=== PATIENT | male | born 1985 | race Two or more races ===

== ENCOUNTER 2016-10-13 11:30 | Inpatient (IN) | payer MEDICAID, OTHER ==
[~2016-10-13] VITALS: Ht 190.5 cm; Wt 77.6 kg
[~2016-10-13 11:30] MED LIST: NORPTMEDS CO
[2016-10-13 12:05] LABS: Basophils # (auto) 0 uL; Basophils % (auto) 0.4 % (0.0-2.0); CONDITION Y; Eosinophils # (auto) 0 uL; Hematocrit 48.8 % (41.0-53.0); Hemoglobin 16.9 g/dL (13.5-17.5); Lymphocytes # (auto) 1.2 uL; Lymphocytes % (auto) 9.7 % (10.0-50.0); Mean Corpuscular Hemoglobin 30.7 pg (28.0-32.0); Mean Corpuscular Hgb Conc. 34.5 g/dL (32.0-36.0); Mean Corpuscular Volume 89.1 fL (80.0-100.0); Mean Platelet Volume 8.8 fL (7.4-10.4); Monocytes # (auto) 0.3 uL; Monocytes % (auto) 2.7 % (0.0-12.0); Neutrophils # (auto) 10.4 uL; Neutrophils % (auto) 87.2 % (37.0-80.0); Platelet Count (auto) 365 10^3/uL (140-450); Red Cell Distribution Width 13.9 % (11.6-16.0); White Blood Cell 11.9 10^3/uL (4.4-10.8)
[2016-10-13] MEDS ORDERED: SODIUM CHLORIDE 0.9% 1,000 ML IVB ONE (12:08)
[2016-10-13] MEDS ORDERED: PANTOPRAZOLE SODIUM 40 MG/10 ML VIAL IV ONE (12:15)
[2016-10-13] MEDS ORDERED: MORPHINE SULF INJ 2 MG/ML SYRINGE 1ML IV ONE ×2 (12:15→13:30)
[2016-10-13] MEDS ORDERED: ONDANSETRON HCL 4 MG/2 ML VIAL IV ONE (12:15)
[2016-10-13 12:26] LABS: Albumin 4.4 g/dL (3.4-5.0); BUN/Creatinine Ratio 9.8; Calcium 9.4 mg/dL (8.5-10.1); Potassium 3.9 mmol/L (3.5-5.1)
[2016-10-13 12:29] LABS: Bilirubin, Total 1.4 mg/dL (0.2-1.0); Total Protein 8.8 g/dL (6.4-8.2)
[2016-10-13 12:30] LABS: INR 1.01 (0.9-1.15); Magnesium 1.9 mg/dL (1.6-2.6); Partial Thromboplastin Time 25.1 sec (22.64-33.71)
[2016-10-13 13:24] LABS: Urine Bilirubin Negative (Negative); Urine Blood Negative /uL (Negative); Urine Color Yellow (Yellow); Urine Glucose Normal (Normal); Urine Mucus FEW (None Seen); Urine Nitrite Negative (Negative); Urine RBC 3 /hpf (0 - 3); Urine Squamous Epithelial Cell FEW /hpf (<5); Urine pH 8.5 (5.0-8.0)
[2016-10-13 13:29] LABS: Urine Ketone 3+ (Negative)
[2016-10-13] MEDS ORDERED: SODIUM CHLORIDE 0.9% 1,000 ML IV ONE ×2 (13:30)
[2016-10-13] MEDS ORDERED: PROMETHAZINE HCL 25 MG/ML 1ML IV ONE (13:30)
[2016-10-13] MEDS ORDERED: MORPHINE SULFATE 4 MG/ML SYRG IV PRN (14:00)
[2016-10-13] MEDS ORDERED: LORazepam 2MG/ML-1ML VIAL IV PRN (14:00)
[2016-10-13] MEDS ORDERED: THIAMINE HCL 100 MG/ML 2ML VIAL IV ONE (14:00)
[2016-10-13] MEDS: THIAMINE INJ 100 MG, MULTIPLE VITAMIN 10 ML, FOLIC ACID 1 MG, MAGNESIUM SULF SDV 50% 8 ... IV SCH ×10 (14:26→18:00)
[2016-10-13] MEDS: metroNIDAZOLE 500MG/100ML 100 ML IV SCH ×2 (15:08→21:45)
[2016-10-13] MEDS: cefTRIAXone 1GM/50ML D5W 50 ML IV SCH (15:08)
[2016-10-13] MEDS: HYDROmorphone HCL 2 MG/ML VL IV PRN ×2 (15:50→20:26)
[2016-10-13] MEDS: SODIUM CHLORIDE 0.9% 1,000 ML IV SCH ×2 (16:22→20:35)
[2016-10-13 20:15] VITALS: BP 151/107
[2016-10-13] MEDS: FAMOTIDINE (10MG/ML) 2ML VL IV SCH (21:45)
[2016-10-13 22:00] VITALS: BP 151/107
[2016-10-14] MEDS: HYDROmorphone HCL 2 MG/ML VL IV PRN ×6 (00:30→20:50)
[2016-10-14] MEDS: SODIUM CHLORIDE 0.9% 1,000 ML IV SCH ×2 (02:01→09:48)
[2016-10-14 05:00] VITALS: BP 154/108
[2016-10-14] MEDS: metroNIDAZOLE 500MG/100ML 100 ML IV SCH (05:34)
[2016-10-14 06:28] LABS: Basophils # (auto) 0 uL; Basophils % (auto) 0.2 % (0.0-2.0); CONDITION Y; Eosinophils # (auto) 0.1 uL; Eosinophils % (auto) 0.6 % (0.0-7.0); Hematocrit 43.9 % (41.0-53.0); Lymphocytes # (auto) 1.5 uL; Lymphocytes % (auto) 13.9 % (10.0-50.0); Mean Corpuscular Hgb Conc. 34.2 g/dL (32.0-36.0); Mean Corpuscular Volume 90.7 fL (80.0-100.0); Mean Platelet Volume 9.4 fL (7.4-10.4); Monocytes # (auto) 0.7 uL; Monocytes % (auto) 7.1 % (0.0-12.0); Neutrophils # (auto) 8.2 uL; Neutrophils % (auto) 78.2 % (37.0-80.0); Platelet Count (auto) 227 10^3/uL (140-450); Red Cell Distribution Width 13.6 % (11.6-16.0); White Blood Cell 10.5 10^3/uL (4.4-10.8)
[2016-10-14 07:10] LABS: Albumin 3.5 g/dL (3.4-5.0); BUN/Creatinine Ratio 8.7; Bilirubin, Total 1.9 mg/dL (0.2-1.0); Potassium 3.6 mmol/L (3.5-5.1); Total Protein 7.1 g/dL (6.4-8.2)
[2016-10-14 08:00] VITALS: BP 156/106
[2016-10-14] MEDS: cefTRIAXone 1GM/50ML D5W 50 ML IV SCH (08:43)
[2016-10-14] MEDS: FAMOTIDINE (10MG/ML) 2ML VL IV SCH ×2 (09:43→21:32)
[2016-10-14] MEDS: THIAMINE HCL 100 MG/ML 2ML VIAL IV SCH (09:43)
[2016-10-14 13:00] VITALS: BP 156/89
[2016-10-14] MEDS: LACTATED RINGER'S 1,000 ML IV SCH (16:11)
[2016-10-14 17:05] VITALS: BP 149/100
[2016-10-14 22:00] VITALS: BP 140/92
[2016-10-15] MEDS: LACTATED RINGER'S 1,000 ML IV SCH ×3 (00:01→16:25)
[2016-10-15] MEDS: HYDROmorphone HCL 2 MG/ML VL IV PRN ×6 (01:10→21:14)
[2016-10-15 05:30] VITALS: BP 145/96
[2016-10-15 07:28] LABS: BUN/Creatinine Ratio 12.9; Bilirubin, Total 1.6 mg/dL (0.2-1.0); Calcium 9.2 mg/dL (8.5-10.1); Potassium 4.2 mmol/L (3.5-5.1)
[2016-10-15 09:24] VITALS: BP 150/100
[2016-10-15] MEDS: THIAMINE HCL 100 MG/ML 2ML VIAL IV SCH (10:04)
[2016-10-15] MEDS: FAMOTIDINE (10MG/ML) 2ML VL IV SCH (10:04)
[2016-10-15 13:00] VITALS: BP 153/97
[2016-10-15 15:48] VITALS: BP 150/98
[2016-10-15 15:49] VITALS: BP 163/117
[2016-10-15 21:30] VITALS: BP 167/102
[2016-10-15] MEDS: FAMOTIDINE 20 MG TAB PO SCH (23:06)
[2016-10-15] MEDS: MORPHINE SULF INJ 2 MG/ML SYRINGE 1ML IV PRN (23:39)
[2016-10-15] MEDS: PROMETHAZINE HCL 25 MG/ML 1ML IV PRN (23:40)
[2016-10-16] MEDS: LACTATED RINGER'S 1,000 ML IV SCH (00:15)
[2016-10-16] MEDS: HYDROmorphone HCL 2 MG/ML VL IV PRN ×5 (01:24→22:26)
[2016-10-16] MEDS: MORPHINE SULF INJ 2 MG/ML SYRINGE 1ML IV PRN ×3 (03:49→20:13)
[2016-10-16] MEDS: PROMETHAZINE HCL 25 MG/ML 1ML IV PRN ×2 (03:49→12:45)
[2016-10-16 05:00] VITALS: BP 162/107
[2016-10-16] MEDS ORDERED: LORazepam 0.5 MG TAB PO PRN (08:00)
[2016-10-16 08:54] LABS: Albumin 4.6 g/dL (3.4-5.0); BUN/Creatinine Ratio 11.5; Bilirubin, Total 1.6 mg/dL (0.2-1.0); Calcium 10.2 mg/dL (8.5-10.1); Potassium 3.7 mmol/L (3.5-5.1); Total Protein 9.8 g/dL (6.4-8.2)
[2016-10-16 09:00] VITALS: BP 172/112
[2016-10-16] MEDS: THIAMINE HCL 100 MG/ML 2ML VIAL IV SCH (09:58)
[2016-10-16] MEDS: LABETALOL HCL 200 MG TAB PO SCH ×2 (10:01→22:11)
[2016-10-16] MEDS: FAMOTIDINE 20 MG TAB PO SCH ×2 (10:02→22:11)
[2016-10-16] MEDS: SOD CHL 0.9%/ KCL 20MEQ 1,000 ML IV SCH (12:53)
[2016-10-16 13:00] VITALS: BP 165/110
[2016-10-16 20:00] VITALS: BP 172/116
[2016-10-16 21:30] VITALS: BP 172/116
[2016-10-17] MEDS: SOD CHL 0.9%/ KCL 20MEQ 1,000 ML IV SCH (00:25)
[2016-10-17] MEDS: MORPHINE SULF INJ 2 MG/ML SYRINGE 1ML IV PRN ×2 (00:26→05:28)
[2016-10-17] MEDS: HYDROmorphone HCL 2 MG/ML VL IV PRN ×2 (02:34→09:05)
[2016-10-17 05:00] VITALS: BP 160/114
[2016-10-17] MEDS: THIAMINE HCL 100 MG/ML 2ML VIAL IV SCH (08:56)
[2016-10-17] MEDS: FAMOTIDINE 20 MG TAB PO SCH (08:56)
[2016-10-17 09:00] VITALS: BP 157/106
[2016-10-17] MEDS: LABETALOL HCL 200 MG TAB PO SCH (09:05)
[2016-10-17] MEDS ORDERED: LAB200T PO (10:26)
[2016-10-17 12:38] VITALS: BP 157/106
== END 2016-10-17 13:25 | disposition home or self-care (01) | DRG 282 ==
LOC: ER 11:38 → TELE 11:39 → TELE-WESTW 20:00 → WEST WING 10-15 20:40
PROVIDERS: ADMIT Internal Medicine; ATTEND Internal Medicine
DX: K85.20 Alcohol induced acute pancreatitis without necrosis or infection (principal); K76.0 Fatty (change of) liver, not elsewhere classified; R65.10 Systemic inflammatory response syndrome (SIRS) of non-infectious origin without acute organ dysfunction; R16.0 Hepatomegaly, not elsewhere classified; N20.0 Calculus of kidney; K80.70 Calculus of gallbladder and bile duct without cholecystitis without obstruction; F10.10 Alcohol abuse, uncomplicated; E78.5 Hyperlipidemia, unspecified; R73.9 Hyperglycemia, unspecified; I10 Essential (primary) hypertension; Z82.49 Family history of ischemic heart disease and other diseases of the circulatory system; Z83.3 Family history of diabetes mellitus; Z90.89 Acquired absence of other organs
CPT/HCPCS: 36415; 71010; 74176; 76705; 80048; 80053; 80061; 80320; 81001; 82150; 82247; 83690; 83735; 85025; 85610; 85730; 94761; 96361; 96374; 96375; C9113; J0696; J2405; J3490

== ENCOUNTER 2016-11-15 06:24 | Emergency (ER) | payer MEDICAID ==
[~2016-11-15] VITALS: Ht 190.5 cm; Wt 86.2 kg
[~2016-11-15 06:24] MED LIST changes: +LAB200T PO
[2016-11-15] MEDS ORDERED: PANTOPRAZOLE 40 MG/10 ML VIAL IV STA (06:37)
[2016-11-15] MEDS ORDERED: SODIUM CHLORIDE 0.9% 1,000 ML IVB ONE (06:37)
[2016-11-15] MEDS ORDERED: ONDANSETRON HCL 4 MG/2 ML VIAL IV ONE (06:45)
[2016-11-15 07:02] LABS: Basophils # (auto) 0 uL; Basophils % (auto) 0.1 % (0.0-2.0); CONDITION Y; Eosinophils # (auto) 0 uL; Hematocrit 45.2 % (41.0-53.0); Hemoglobin 15.8 g/dL (13.5-17.5); Lymphocytes # (auto) 1.5 uL; Lymphocytes % (auto) 16.2 % (10.0-50.0); Mean Corpuscular Hemoglobin 30.8 pg (28.0-32.0); Mean Platelet Volume 9.4 fL (7.4-10.4); Monocytes # (auto) 0.6 uL; Monocytes % (auto) 6.4 % (0.0-12.0); Neutrophils # (auto) 7.2 uL; Neutrophils % (auto) 77.3 % (37.0-80.0); Platelet Count (auto) 242 10^3/uL (140-450); Red Cell Distribution Width 12.7 % (11.6-16.0); White Blood Cell 9.3 10^3/uL (4.4-10.8)
[2016-11-15 07:26] LABS: Magnesium 2.2 mg/dL (1.6-2.6)
[2016-11-15 07:30] LABS: Calcium 9.7 mg/dL (8.5-10.1); Potassium 3.9 mmol/L (3.5-5.1)
[2016-11-15] MEDS ORDERED: PROCHLORPERAZINE EDISYLATE 5 MG/ML 2ML VIAL IV ONE (08:00)
[2016-11-15 08:46] VITALS: BP 162/118
[2016-11-15 09:19] LABS: Urine Bilirubin Negative (Negative); Urine Blood Negative /uL (Negative); Urine Color Yellow (Yellow); Urine Glucose Normal (Normal); Urine Hyaline Cast FEW /lpf (0 - 2); Urine Ketone TRACE (Negative); Urine Mucus FEW (None Seen); Urine Nitrite Negative (Negative); Urine RBC <1 /hpf (0 - 3); Urine Squamous Epithelial Cell FEW /hpf (<5); Urine pH 8.5 (5.0-8.0)
== END 2016-11-15 09:19 | disposition home or self-care (01) ==
LOC: ER 06:24
DX: K80.20 Calculus of gallbladder without cholecystitis without obstruction (principal); Z90.89 Acquired absence of other organs; Z87.19 Personal history of other diseases of the digestive system
CPT/HCPCS: 36415; 80048; 81001; 82150; 83690; 83735; 85025; 94761; 96361; 96374; 96375; 99284; C9113; J0780; J2405; J7030

== ENCOUNTER 2017-07-18 19:03 | Emergency (ER) | payer MEDICAID ==
[~2017-07-18] VITALS: Ht 190.5 cm; Wt 86.2 kg
[2017-07-18 19:56] LABS: Basophils # (auto) 0.1 uL; Eosinophils # (auto) 0 uL; Eosinophils % (auto) 0.1 % (0.0-7.0); Hematocrit 48.4 % (41.0-53.0); Hemoglobin 16.7 g/dL (13.5-17.5); Lymphocytes # (auto) 2.5 uL; Lymphocytes % (auto) 23.7 % (10.0-50.0); Mean Corpuscular Hemoglobin 30.2 pg (28.0-32.0); Mean Corpuscular Hgb Conc. 34.6 g/dL (32.0-36.0); Mean Corpuscular Volume 87.3 fL (80.0-100.0); Monocytes # (auto) 0.6 uL; Monocytes % (auto) 5.5 % (0.0-12.0); Neutrophils # (auto) 7.5 uL; Neutrophils % (auto) 69.7 % (37.0-80.0); Nucleated Red Blood Cells % 0.2 %; Platelet Count (auto) 378 10^3/uL (140-450); Red Blood Cells 5.55 10^6/uL (4.5-5.90); Red Cell Distribution Width 13.1 % (11.8-14.3); White Blood Cell 10.7 10^3/uL (4.4-10.8)
[2017-07-18 20:09] LABS: INR 0.98 (0.9-1.15); Partial Thromboplastin Time 26.1 sec (22.64-33.71); Prothrombin Time 10.7 sec (9.37-12.3)
[2017-07-18 20:16] LABS: Alanine Aminotransferase 59 U/L (16-61); Albumin 4.9 g/dL (3.4-5.0); Alkaline Phosphatase 98 U/L (45-117); Amylase 46 U/L (25-115); Anion Gap 18 (5-15); Aspartate Aminotransferase 30 U/L (15-37); Bilirubin, Total 1.2 mg/dL (0.2-1.0); Blood Urea Nitrogen 12 mg/dL (7-18); Calcium 10.2 mg/dL (8.5-10.1); Carbon Dioxide 25 mmol/L (21-32); Chloride 96 mmol/L (98-107); GFR African American 100 mL/min; GFR Non-African American 82 mL/min; Glucose 120 mg/dL (74-106); Lipase 71 U/L (73-393); Potassium 3.4 mmol/L (3.5-5.1); Sodium 139 mmol/L (136-145); Total Protein 9.5 g/dL (6.4-8.2)
[2017-07-18 20:42] LABS: Urine Bacteria NONE SEEN /hpf (None Seen); Urine Blood Negative /uL (Negative); Urine Mucus FEW (None Seen); Urine WBC 1 /hpf (0 - 3)
[2017-07-18] MEDS ORDERED: MORPHINE SULFATE 8mg/ml INJ SDV IV ONE (23:30)
[2017-07-18] MEDS ORDERED: SODIUM CHLORIDE 0.9% 1,000 ML IV ONE (23:30)
[2017-07-18] MEDS ORDERED: ONDANSETRON HCL 4 MG/2 ML VIAL IV ONE (23:30)
[2017-07-19] MEDS ORDERED: NALBUPHINE HCL 10 MG/1ml INJECTION IV ONE (01:30)
[2017-07-19] MEDS ORDERED: PROMETHAZINE HCL 25 MG/ML 1ML IV ONE (01:30)
[2017-07-19 03:23] VITALS: BP 157/106
== END 2017-07-19 03:51 | disposition home or self-care (01) ==
LOC: ER 19:03
DX: K80.20 Calculus of gallbladder without cholecystitis without obstruction (principal); K86.1 Other chronic pancreatitis; Z90.89 Acquired absence of other organs
CPT/HCPCS: 36415; 74176; 80053; 81001; 82150; 83690; 84484; 85025; 85610; 85730; 93005; 96361; 96374; 96375; 99285; J2270; J2300; J2405; J2550; J7030